=== PATIENT | female | born 1955 | race Caucasian/White ===

== ENCOUNTER → 2018-12-12 12:31 | Outpatient (CLI) | payer OTHER, SELFPAY ==
--- NOTE | 2018-12-12 | DI.MG.S_ITS ---
BILATERAL DIGITAL SCREENING MAMMOGRAM 3D/2D WITH CAD: 12/12/2018 CLINICAL: Routine screening. Family history of breast cancer. Comparison is made to exams dated: 09/20/2017 mammogram, 09/13/2016 mammogram, and 07/08/2015 mammogram - [facility]. The tissue of both breasts is heterogeneously dense. This may lower the sensitivity of mammography. Current study was also evaluated with a Computer Aided Detection (CAD) system. No significant masses, calcifications, or other findings are seen in either breast. There has been no significant interval change. IMPRESSION: NEGATIVE There is no mammographic evidence of malignancy. A 1 year screening mammogram is recommended. This exam was interpreted at Station ID: [id number]. NOTE: For mammograms, a report in lay terms will be sent to the patient. Approximately 15% of breast malignancies will not be visualized mammographically. In the management of a palpable breast mass, a negative mammogram must not discourage biopsy of a clinically suspicious lesion. Electronically Signed By: Akshat mena/ro:12/12/2018 18:15:39 copy to: Mera Corona letter sent: Normal Exam ACR BI-RADS Category 1: Negative 3341F
== END ==
PROVIDERS: PCP Family Medicine; Referring Provider Specialist; Visit Provider Family Medicine
DX: Z12.31 Encounter for screening mammogram for malignant neoplasm of breast (principal); Z80.3 Family history of malignant neoplasm of breast
CPT/HCPCS: 77063; 77067

== ENCOUNTER 2019-01-14 09:27 | Day surgery (SDC) | payer OTHER, SELFPAY ==
[2019-01-14 10:03] VITALS: BP 113/69; PULSE 75; RESP 16; TEMP 36.6; O2SAT 100
[2019-01-14] MEDS: ONDANSETRON 4 MG/2 ML INJ IV (11:01)
--- NOTE | 2019-01-14 11:31 | PM.HP.1 ---
History of Present Illness Chief complaint: [id number] COLONOSCOPY Patient History Medical History Arthritis (Chronic ~2001) Coronary artery disease (Chronic ~2012) Hepatitis B carrier (Chronic ~1987) Hyperlipidemia (Chronic ~2005) Osteoporosis (Chronic ~2012) Rosacea (Chronic ~1999) Scoliosis (Chronic ~1979) Sleep apnea (Chronic ~2010) Vision disorder (Chronic) Chicken pox (Resolved) Mumps (Resolved) Wrist fracture (Resolved) Surgical History Anesthesia (Resolved) Status post delivery (~1985) Family History (Updated 06/22/15 @ 00:00 by Conversion Provider) Brother Age: 60 High cholesterol Brother Age: 59 Hypertension High cholesterol Father Heart disease High cholesterol Grandmother Cancer Mother Age: 87 Hypertension High cholesterol Stroke Grandfather Heart disease Grandmother Heart disease Sister Age: 57 High cholesterol Grandfather No problems noted. Social History household members: spouse Smoking Status: Never smoker Family & Social History Family History Brother Age: 60 High cholesterol Brother Age: 59 Hypertension High cholesterol Father Heart disease High cholesterol Grandmother Cancer Mother Age: 87 Hypertension High cholesterol Stroke Grandfather Heart disease Grandmother Heart disease Sister Age: 57 High cholesterol Grandfather No problems noted. Social History: household members spouse Tobacco & Substance use: Smoking Status Never smoker Meds Home Medications Medication Instructions Recorded Confirmed Type calcium carbonate [Calci-Chew] 1 tab PO BID #0 11/08/16 History ESTRADIOL PEARLS 25 mcg VAGINAL 2 TIMES WEEK #24 tab 07/31/18 Rx aspirin 81 mg tablet,delayed 81 mg PO DAILY 07/31/18 07/31/18 History release atorvastatin 10 mg tablet 10 mg PO DAILY 07/31/18 07/31/18 History Allergies Allergy/AdvReac Type Severity Reaction Status Date / Time No Known Drug Allergies Allergy Unverified 07/31/18 13:46 Review of Systems Review of Systems All systems reviewed & are unremarkable except as noted in HPI and below Exam Vital Signs (past 8 hours): - 01/14/19 10:03 Temperature 97.8 F Pulse Rate 75 Respiratory Rate 16 Blood Pressure 113/69 Pulse Oximetry 100 Oxygen Delivery Method Room Air Narrative Exam Narrative: Awake alert oriented x3, pupils equal round reactive to light, lungs clear to auscultation bilaterally, heart regular rate and rhythm, abdomen nondistended nontender, extremities without edema Assessment & Plan Assessment & Plan narrative: Screening colonoscopy
[2019-01-14] MEDS: fentaNYL 250 MCG/5 ML INJ IV (11:46)
[2019-01-14] MEDS: MIDAZOLAM 5 MG/5 ML VIAL IV (11:47)
[2019-01-14 12:10] VITALS: BP 115/70; PULSE 77; RESP 12; TEMP 36.4; O2SAT 100
[2019-01-14 12:13] VITALS: BP 115/72; PULSE 78; RESP 13; O2SAT 100
--- NOTE | 2019-01-14 12:15 | PM.OP.ENDO ---
Operative Date/Time/Diagnoses Date of procedure: 01/14/19 Procedure & Clinicians Study performed: Colonoscopy Moderate conscious sedation was administered by the endoscopy nurse and supervised by the endoscopist. The following parameters were monitored: Oxygen saturation, heart rate, blood pressure, and response to care. Sedation: 3 mg midazolam, 100 mcg fentanyl, 4 mg Zofran Indications: Colon cancer screening. Personal history of colon polyps. Last colonoscopy 2016 (poor prep) Procedure Notes Procedure in detail: Prior to the procedure, history and physical was performed, and patient medications and allergies were reviewed. Preprocedure nursing history and assessment was reviewed. Patient identification and proposed procedure were verified by the physician and nurse in the procedure room. The physical status of the patient was reassessed after the procedure. After informed consent was obtained including risks, benefits, and alternatives, the scope was passed under direct vision. Throughout the procedure, the patient's blood pressure, pulse, and oxygen saturations were monitored continuously. The colonoscope was introduced through the anus and advanced to the cecum as identified by the appendiceal orifice and ileocecal valve. The patient tolerated the procedure well. Bowel prep was deemed adequate to detect polyps greater than 5 mm. Digital rectal exam and perianal examinations were unremarkable. Retroflexion in the rectum revealed grade 1 internal hemorrhoids. The entire examined colon was markedly tortuous. There was looping in the sigmoid colon. The colon was otherwise unremarkable Impression: Internal hemorrhoids Tortuous colon No specimens collected Sedation minutes: 28 Complications: other (No complications. No EBL) Plan for aftercare: Repeat colonoscopy in 5 years for screening purposes Resume home medications Resume previous diet Patient has a contact number available for emergencies. The signs and symptoms of potential delayed complications were discussed with the patient. Return to normal activities tomorrow. Written discharge instructions were provided to the patient. Discharge home with escort
[2019-01-14 12:19] VITALS: BP 117/62; PULSE 81; RESP 13; O2SAT 100
[2019-01-14 12:25] VITALS: BP 104/60; PULSE 100; RESP 18; TEMP 36.6; O2SAT 100
== END 2019-01-14 12:37 | disposition home or self-care (01) ==
PROVIDERS: PCP Family Medicine; Visit Provider Internal Medicine
PROC: 0DJD8ZZ Inspection of Lower Intestinal Tract, Via Natural or Artificial Opening Endoscopic (ICD-10-PCS; CPT 45378; principal; 2019-01-14 11:00)
DX: Z86.010 Personal history of colon polyps (principal); K64.0 First degree hemorrhoids
CPT/HCPCS: 45378; J2250; J2405; J3010

== ENCOUNTER → 2020-05-19 16:19 | Outpatient (CLI) | payer MEDICARE, SELFPAY ==
--- NOTE | 2020-05-19 | DI.MG.S_ITS ---
BILATERAL DIGITAL SCREENING MAMMOGRAM 3D/2D WITH CAD: 05/19/2020 CLINICAL: Routine screening. Family history of breast cancer. Comparison is made to exams dated: 12/12/2018 mammogram, 09/20/2017 mammogram, and 09/13/2016 mammogram - [facility]. The tissue of both breasts is heterogeneously dense. This may lower the sensitivity of mammography. Current study was also evaluated with a Computer Aided Detection (CAD) system. No significant masses, calcifications, or other findings are seen in either breast. There has been no significant interval change. IMPRESSION: NEGATIVE There is no mammographic evidence of malignancy. A 1 year screening mammogram is recommended. This exam was interpreted at Station ID: [id number]. NOTE: For mammograms, a report in lay terms will be sent to the patient. Approximately 15% of breast malignancies will not be visualized mammographically. In the management of a palpable breast mass, a negative mammogram must not discourage biopsy of a clinically suspicious lesion. Electronically Signed By: Shade schaefer/ro:05/19/2020 16:59:24 letter sent: Normal Exam ACR BI-RADS Category 1: Negative 3341F
== END ==
PROVIDERS: PCP Nurse Practitioner; Referring Provider Nurse Practitioner; Visit Provider Nurse Practitioner
DX: Z12.31 Encounter for screening mammogram for malignant neoplasm of breast (principal); Z80.3 Family history of malignant neoplasm of breast
CPT/HCPCS: 77063; 77067

== ENCOUNTER → 2021-10-03 14:10 | Outpatient (CLI) | payer MEDICARE, OTHER, SELFPAY ==
--- NOTE | 2021-10-03 | DI.MG.S_ITS ---
BILATERAL DIGITAL SCREENING MAMMOGRAM 3D/2D WITH CAD: 10/03/2021 CLINICAL: Routine screening. Family history of breast cancer. Comparison is made to exams dated: 05/19/2020 mammogram, 12/12/2018 mammogram, 09/20/2017 mammogram, and 09/13/2016 mammogram - [facility]. The tissue of both breasts is heterogeneously dense. This may lower the sensitivity of mammography. Current study was also evaluated with a Computer Aided Detection (CAD) system. There is a benign cyst in the left breast. No significant masses, calcifications, or other findings are seen in either breast. There has been no significant interval change. IMPRESSION: BENIGN There is no mammographic evidence of malignancy. A 1 year screening mammogram is recommended. This exam was interpreted at Station ID: [id number]. NOTE: For mammograms, a report in lay terms will be sent to the patient. Approximately 15% of breast malignancies will not be visualized mammographically. In the management of a palpable breast mass, a negative mammogram must not discourage biopsy of a clinically suspicious lesion. Electronically Signed By: Sarath lew/ro:10/04/2021 07:02:23 letter sent: Normal Exam ACR BI-RADS Category 2: Benign Finding(s) 3342F
== END ==
PROVIDERS: PCP Physician Assistant Medical; Referring Provider Physician Assistant Medical; Visit Provider Physician Assistant Medical
DX: Z12.31 Encounter for screening mammogram for malignant neoplasm of breast (principal); Z80.3 Family history of malignant neoplasm of breast
CPT/HCPCS: 77063; 77067

== ENCOUNTER → 2022-12-04 12:10 | Outpatient (CLI) | payer MEDICARE, OTHER, SELFPAY ==
--- NOTE | 2022-12-04 | DI.MG.S_ITS ---
BILATERAL DIGITAL SCREENING MAMMOGRAM 3D/2D WITH CAD: 12/04/2022 CLINICAL: Routine screening. Family history of breast cancer. Comparison is made to exams dated: 10/03/2021 mammogram, 05/19/2020 mammogram, and 12/12/2018 mammogram - [facility]. Both breasts are heterogeneously dense, which may obscure small masses (category c / 51-75% glandular tissue). Current study was also evaluated with a Computer Aided Detection (CAD) system. There is a benign cyst in the left breast. No significant masses, calcifications, or other findings are seen in either breast. There has been no significant interval change. IMPRESSION: BENIGN There is no mammographic evidence of malignancy. A 1 year screening mammogram is recommended. Based on the Tyrer Cuzick model (a risk assessment model) the patient's lifetime risk is 11.1% and her 10 year risk is 5.9%. According to the ACR, ACS, and NCCN guidelines, an annual breast MRI exam along with mammogram is recommended if the patient's lifetime risk is 20% or greater. This exam was interpreted at Station ID: [id number]. NOTE: For mammograms, a report in lay terms will be sent to the patient. Approximately 15% of breast malignancies will not be visualized mammographically. In the management of a palpable breast mass, a negative mammogram must not discourage biopsy of a clinically suspicious lesion. Electronically Signed By: Leta hargrove/ro:12/04/2022 16:40:27 letter sent: Normal Exam ACR BI-RADS Category 2: Benign Finding(s) 3342F
== END ==
PROVIDERS: PCP Physician Assistant Medical; Referring Provider Physician Assistant Medical; Visit Provider Physician Assistant Medical
DX: Z12.31 Encounter for screening mammogram for malignant neoplasm of breast (principal); Z80.3 Family history of malignant neoplasm of breast
CPT/HCPCS: 77063; 77067

== ENCOUNTER → 2022-12-14 10:36 | Outpatient (CLI) | payer MEDICARE, OTHER, SELFPAY ==
--- NOTE | 2022-12-14 | DI.US.S_ITS ---
PROCEDURE: US ABDOMEN COMPLETE INDICATIONS: HEP B TECHNIQUE: Real-time scanning was performed of the abdominal and retroperitoneal organs, with image documentation. COMPARISON: None. FINDINGS: Liver: Liver is normal in size and demonstrates no suspicious lesions. There is a 4.3 cm simple cyst seen on the left. Gallbladder: No findings of gallstones or sludge are seen. The gallbladder wall is not thickened, measuring 3 mm or less. No specific pericholecystic fluid is seen. The sonographic Wills sign is negative. Biliary ducts: Intrahepatic bile ducts are non-dilated. Extrahepatic bile duct caliber measures 4-5 mm. Normal is 6-7 mm or less in diameter, or 10 mm or less post-cholecystectomy. Pancreas: Visualized portions of the pancreas are sonographically normal. Spleen: Spleen is normal in size and homogeneous in echotexture. Kidneys: Kidneys are normal in size and echotexture. Right kidney measures 9.6 cm long; left kidney measures 11.4 cm long. No hydronephrosis or nephrolithiasis. No solid masses. Aorta: Visualized aorta is normal in caliber at less than 3 cm. Iliacs: Proximal common iliac arteries are normal in caliber at less than 2.5 cm. IVC: Intrahepatic inferior vena cava is patent. Miscellaneous: No free abdominal fluid. IMPRESSION: No suspicious liver abnormality is seen. 4.3 cm left liver cyst incidentally noted. Dictated by: Colt Davenport M.D. on 12/14/2022 at 11:54 Approved by: Colt Davenport M.D. on 12/14/2022 at 11:55
== END ==
PROVIDERS: PCP Physician Assistant Medical; Referring Provider Internal Medicine Gastroenterology; Visit Provider Internal Medicine Gastroenterology
DX: K76.89 Other specified diseases of liver (principal); B19.10 Unspecified viral hepatitis B without hepatic coma
CPT/HCPCS: 76700

== ENCOUNTER → 2023-06-12 10:23 | Outpatient (CLI) | payer MEDICARE, OTHER, SELFPAY ==
--- NOTE | 2023-06-12 | DI.US.S_ITS ---
PROCEDURE: US ABDOMEN LIMITED INDICATIONS: HEP B AND HCC SURVEILLANCE TECHNIQUE: Real-time focused scanning was performed of the abdomen, with image documentation. COMPARISON: [facility], US, US ABDOMEN COMPLETE, 12/14/2022, 11:08. FINDINGS: Liver measures 12 cm. Overall echogenicity is heterogeneous and increased. Gallbladder unremarkable. CBD is 3 mm, within normal limits. Visualized pancreas unremarkable. The left lobe hepatic cyst measures up to 4 cm. IMPRESSION: No suspicious focal liver lesion. Heterogeneous increased hepatic echotexture, likely fibrofatty infiltration. Consider continued HCC surveillance. Dictated by: Po Larkin M.D. on 06/12/2023 at 14:15 Approved by: Po Larkin M.D. on 06/12/2023 at 14:18
== END ==
PROVIDERS: PCP Physician Assistant Medical; Referring Provider Internal Medicine Gastroenterology; Visit Provider Internal Medicine Gastroenterology
DX: Z12.9 Encounter for screening for malignant neoplasm, site unspecified (principal); B19.10 Unspecified viral hepatitis B without hepatic coma
CPT/HCPCS: 76705

== ENCOUNTER → 2023-12-04 09:49 | Outpatient (CLI) | payer MEDICARE, OTHER, SELFPAY ==
--- NOTE | 2023-12-04 | DI.US.S_ITS ---
PROCEDURE: US ABDOMEN COMPLETE INDICATIONS: HEB B HCC SURVEILLANCE TECHNIQUE: Real-time scanning was performed of the abdominal and retroperitoneal organs, with image documentation. COMPARISON: [facility], US, US ABDOMEN COMPLETE, 12/14/2022, 11:08. [facility], US, US ABDOMEN LIMITED, 06/12/2023, 10:39. FINDINGS: Liver: Liver is normal in size and demonstrates no suspicious lesions. There is a simple cyst seen involving the medial left lobe that measures up to 4.3 cm. This is similar to prior. Gallbladder: No findings of gallstones or sludge are seen. The gallbladder wall is not thickened, measuring 3 mm or less. No specific pericholecystic fluid is seen. The sonographic Wills sign is negative. Biliary ducts: Intrahepatic bile ducts are non-dilated. Extrahepatic bile duct caliber measures 3 mm. Normal is 6-7 mm or less in diameter, or 10 mm or less post-cholecystectomy. Pancreas: Visualized portions of the pancreas are sonographically normal. Spleen: Spleen is normal in size and homogeneous in echotexture. Kidneys: Kidneys are normal in size and echotexture. Right kidney measures 10 cm long; left kidney measures 10.9 cm long. No hydronephrosis or nephrolithiasis. No solid masses. Aorta: Visualized aorta is normal in caliber at less than 3 cm. Iliacs: Proximal common iliac arteries are normal in caliber at less than 2.5 cm. IVC: Intrahepatic inferior vena cava is patent. Miscellaneous: No free abdominal fluid. IMPRESSION: No suspicious liver lesions are seen. Stable simple left liver cyst. Dictated by: Colt Davenport M.D. on 12/04/2023 at 18:17 Approved by: Colt Davenport M.D. on 12/04/2023 at 18:18
== END ==
PROVIDERS: PCP Physician Assistant Medical; Referring Provider Internal Medicine Gastroenterology; Visit Provider Internal Medicine Gastroenterology
DX: B19.10 Unspecified viral hepatitis B without hepatic coma (principal); Z08 Encounter for follow-up examination after completed treatment for malignant neoplasm; Z85.05 Personal history of malignant neoplasm of liver; K76.89 Other specified diseases of liver
CPT/HCPCS: 76700

== ENCOUNTER → 2023-12-09 11:35 | Outpatient (CLI) | payer MEDICARE, OTHER, SELFPAY ==
--- NOTE | 2023-12-09 11:36 | DI.MG.S_ITS ---
BILATERAL DIGITAL SCREENING MAMMOGRAM 3D/2D WITH CAD: 12/09/2023 CLINICAL: Routine screening. Family history of breast cancer. Comparison is made to exams dated: 12/04/2022 mammogram, 10/03/2021 mammogram, 05/19/2020 mammogram, 12/12/2018 mammogram, and 09/20/2017 mammogram - [facility]. Both breasts are heterogeneously dense, which may obscure small masses (category c / 51-75% glandular tissue). Current study was also evaluated with a Computer Aided Detection (CAD) system. No significant masses, calcifications, or other findings are seen in either breast. There has been no significant interval change. IMPRESSION: NEGATIVE There is no mammographic evidence of malignancy. A 1 year screening mammogram is recommended. Based on the Tyrer Cuzick model (a risk assessment model) the patient's lifetime risk is 10.5% and her 10 year risk is 5.9%. According to the ACR, ACS, and NCCN guidelines, an annual breast MRI exam along with mammogram is recommended if the patient's lifetime risk is 20% or greater. This exam was interpreted at Station ID: [id number]. NOTE: For mammograms, a report in lay terms will be sent to the patient. Approximately 15% of breast malignancies will not be visualized mammographically. In the management of a palpable breast mass, a negative mammogram must not discourage biopsy of a clinically suspicious lesion. Electronically Signed By: Rio lim/ro:12/09/2023 14:21:36 letter sent: Normal Exam ACR BI-RADS Category 1: Negative 3341F
== END ==
PROVIDERS: PCP Physician Assistant Medical; Referring Provider Physician Assistant Medical; Visit Provider Physician Assistant Medical
DX: Z12.31 Encounter for screening mammogram for malignant neoplasm of breast (principal); Z80.3 Family history of malignant neoplasm of breast; R92.333 Mammographic heterogeneous density, bilateral breasts
CPT/HCPCS: 77063; 77067

== ENCOUNTER 2024-03-19 10:23 | Day surgery (SDC) | payer MEDICARE, OTHER, SELFPAY ==
[2024-03-19 10:52] VITALS: BP 129/77; PULSE 90; RESP 16; TEMP 36.3; O2SAT 100
[2024-03-19] MEDS: LACTATED RINGERS 1,000 ML 42 ML IV (11:00)
--- NOTE | 2024-03-19 11:50 | PM.HP.1 ---
History of Present Illness History of Present Illness Date Patient Seen: 03/19/24 Time Patient Seen: 11:50 Chief complaint: Screening Colonoscopy Narrative: Alicia is a 68-year-old woman with a history of colon polyps. Her last colonoscopy was in [address] Puga and no polyps were found. She believes her colonoscopy prior to that had polyps. [facility] Medical History (Updated 03/19/24 @ 11:51 by Davon Manzano MD) Vision disorder Sleep apnea (~2010) Arthritis (~2001) Scoliosis (~1979) Osteoporosis (~2012) Wrist fracture Rosacea (~1999) Mumps Hepatitis B carrier (~1987) Chicken pox Hyperlipidemia (~2005) Coronary artery disease (~2012) Surgical History Anesthesia Status post delivery (~1985) Family History Brother Age: 65 High cholesterol Brother Age: 64 Hypertension High cholesterol Father Heart disease High cholesterol Grandmother Cancer Mother Age: 92 Hypertension High cholesterol Stroke Grandfather Heart disease Grandmother Heart disease Sister Age: 62 High cholesterol Grandfather No problems noted. Social History household members: spouse Smoking Status: Never smoker Meds Home Medications and Allergies Home Medications Medication Instructions Recorded Confirmed Type calcium carbonate (Calci-Chew) 1 tab PO BID ##0 11/08/16 03/19/24 History ESTRADIOL PEARLS 25 mcg vaginal 2 TIMES WEEK HRT 07/31/18 03/19/24 Rx #24 tabs rosuvastatin 5 mg tablet 2.5 mg PO QPM cholesterol 03/19/24 03/19/24 History Allergies Allergy/AdvReac Type Severity Reaction Status Date / Time No Known Drug Allergies Allergy Verified 03/19/24 10:49 Exam Vital Signs (past 8 hours): - 03/19/24 10:52 Temperature 97.3 F L Pulse Rate 90 Respiratory Rate 16 Blood Pressure 129/77 Pulse Oximetry 100 Oxygen Delivery Method Room Air Oxygen Delivery Method Room Air Const General: healthy appearing Resp Effort & Inspection: normal respiratory effort Assessment & Plan Assessment and plan (1) History of colon polyps: Status: Acute Plan We reviewed the risks and benefits of colonoscopy and she would like to proceed. Time-Based Coding :: [TOTAL MINUTES] spent with patient and on the chart (including review of chart, obtaining history, exam, reviewing outside data, placing orders, documenting exam and treatment plan, and counseling patient) on [DATE].
--- NOTE | 2024-03-19 12:20 | PM.OP.COLON ---
Operative Date/Time/Diagnoses Date of procedure: 03/19/24 Time of procedure: 12:20 Pre-op diagnosis: History of colon polyps Post-op diagnosis: same Procedure & Clinicians Study performed: Colonoscopy Same procedure as scheduled: Yes Surgeon: Davon Manzano Procedure Notes Procedure in detail: Surgeon: Davon Manzano MD Anesthesia: Iman Scruggs CRNA Procedure: The patient was brought to the endoscopy suite, placed in left lateral decubitus position. The patient was connected to monitoring devices. A time-out was performed. Sedation was administered. Once the patient was adequately sedated, a digital rectal exam was performed and was normal. The scope was then inserted and advanced to the cecum where the appendiceal orifice was identified and photographed. The scope was then slowly withdrawn over greater than 6 minutes. The mucosa was thoroughly inspected. Few scattered diverticula were seen. No polyps were found. The scope was retroflexed in the rectum. No abnormalities were seen. The scope was straightened and removed. The patient was awakened and brought to recovery. Scope withdrawal time: 7 minutes Sedation time: 16 minutes EBL: 0 Findings: Normal colon Post-procedure Recommendations: Colonoscopy in 10 years Disposition: PACU
[2024-03-19 12:22] VITALS: BP 84/50; PULSE 71; RESP 19; TEMP 36.3; O2SAT 100
[2024-03-19 12:27] VITALS: BP 99/57; PULSE 91; RESP 16; O2SAT 100
[2024-03-19 12:32] VITALS: BP 98/58; PULSE 78; RESP 17; TEMP 36.3; O2SAT 100
[2024-03-19 12:37] VITALS: BP 99/56; PULSE 74; RESP 15; TEMP 36.2; O2SAT 100
== END 2024-03-19 12:55 | disposition home or self-care (01) ==
PROVIDERS: PCP Physician Assistant Medical; Referring Provider Surgery; Visit Provider Surgery
PROC: 0DJD8ZZ Inspection of Lower Intestinal Tract, Via Natural or Artificial Opening Endoscopic (ICD-10-PCS; CPT 45378; principal; 2024-03-19 11:30)
DX: Z12.11 Encounter for screening for malignant neoplasm of colon (principal); K57.90 Diverticulosis of intestine, part unspecified, without perforation or abscess without bleeding; Z86.010 Personal history of colon polyps
CPT/HCPCS: G0121; J2405; J2704

== ENCOUNTER → 2024-03-31 16:29 | Outpatient (CLI) | payer MEDICARE, OTHER, SELFPAY | PROVIDERS: PCP Physician Assistant Medical; Referring Provider Internal Medicine Gastroenterology; Visit Provider Internal Medicine Gastroenterology | DX: Z12.9 Encounter for screening for malignant neoplasm, site unspecified (principal) | CPT/HCPCS: 36415; 82105 ==

== ENCOUNTER → 2024-06-10 10:53 | Outpatient (CLI) | payer MEDICARE, OTHER, SELFPAY ==
--- NOTE | 2024-06-10 10:54 | DI.US.S_ITS ---
PROCEDURE: US ABDOMEN COMPLETE INDICATIONS: HEB B TECHNIQUE: Real-time scanning was performed of the abdominal and retroperitoneal organs, with image documentation. COMPARISON: [facility], US, US ABDOMEN COMPLETE, 12/04/2023, 10:26. [facility], US, US ABDOMEN LIMITED, 06/12/2023, 10:39. FINDINGS: Liver: The liver demonstrates normal size. The liver demonstrates generalized mildly increased echogenicity. This decreases ultrasound sensitivity for detection of hepatic masses. There is a simple cyst seen involving the left liver measuring up to 4.3 cm. Gallbladder: No findings of gallstones or sludge are seen. The gallbladder wall is not thickened, measuring 3 mm or less. No specific pericholecystic fluid is seen. The sonographic Wills sign is negative. Biliary ducts: Intrahepatic bile ducts are non-dilated. Extrahepatic bile duct caliber measures 4 mm. Normal is 6-7 mm or less in diameter, or 10 mm or less post-cholecystectomy. Pancreas: Visualized portions of the pancreas are sonographically normal. Spleen: Spleen is normal in size and homogeneous in echotexture. Kidneys: Kidneys are normal in size and echotexture. Right kidney measures 9.3 cm long; left kidney measures 11.1 cm long. No hydronephrosis or nephrolithiasis. No solid masses. Aorta: Visualized aorta is normal in caliber at less than 3 cm. Iliacs: Proximal common iliac arteries are normal in caliber at less than 2.5 cm. IVC: Intrahepatic inferior vena cava is patent. Miscellaneous: No free abdominal fluid. IMPRESSION: No significant liver abnormality is seen. Mild fatty liver infiltration can be seen. A simple left liver cyst can be seen. Dictated by: Colt Davenport M.D. on 06/10/2024 at 15:17 Approved by: Colt Davenport M.D. on 06/10/2024 at 15:19
== END ==
PROVIDERS: PCP Physician Assistant Medical; Referring Provider Internal Medicine Gastroenterology; Visit Provider Internal Medicine Gastroenterology
DX: B19.10 Unspecified viral hepatitis B without hepatic coma (principal); K76.89 Other specified diseases of liver; K76.0 Fatty (change of) liver, not elsewhere classified
CPT/HCPCS: 76700

== ENCOUNTER → 2024-10-13 10:16 | Outpatient (CLI) | payer MEDICARE, OTHER, SELFPAY ==
[2024-10-13 11:08] LABS: Add Manual Diff / Slide Review NO; Basophils Absolute Auto 0 /uL (0-100); Basophils Percent Auto 0.9 % (0-2); Eosinophils Absolute Auto 100 /uL (0-450); Eosinophils Percent Auto 2.4 % (2-4); Hematocrit 40.8 % (36-46); Hemoglobin 13.8 g/dL (12.0-16.0); Lymphocytes Absolute Auto 1500 /uL (1100-4500); Mean Corpuscular HGB Conc 33.8 % (30-36); Mean Corpuscular Hemoglobin 31.6 PG (26-34); Mean Corpuscular Volume 93.6 fL (80-100); Monocytes Absolute Auto 400 /uL (0-900); Monocytes Percent Auto 10.6 % (3-14); Neutrophils Absolute Auto 2000 /uL (1500-7000); Neutrophils Percent Auto 49.1 % (50-75); Platelet Count 246 X10^3/uL (150-400); Red Blood Cell Count 4.36 X10^6/uL (4.0-5.2); Red Cell Distribution Width 13.6 % (11.6-14.8); White Blood Cell Count 4.1 X10^3/uL (4.5-11.0)
[2024-10-13 11:31] LABS: Alanine Aminotransferase 21 IU/L (<35); Albumin 4.8 g/dL (3.5-5.0); Albumin Globulin Ratio 2.1 (1.0-2.8); Alkaline Phosphatase 58 U/L (38-126); Aspartate Aminotransferase 38 IU/L (14-36); BUN Creatinine Ratio 23.9 (6-22); Bilirubin Total 0.8 mg/dL (0.2-1.3); Blood Urea Nitrogen 16 mg/dL (7-17); Calcium 9.6 mg/dL (8.4-10.2); Carbon Dioxide 28 mmol/L (22-32); Chloride 101 mmol/L (98-107); Estimated Glomerular Filt Rate > 60 mL/min (>60); Globulin 2.3 g/dL (1.7-4.1); Glucose 92 mg/dL (80-110); HEMOLYSIS < 15 (0-50); Potassium 4.1 mmol/L (3.4-5.1); Sodium 137 mmol/L (137-145); Total Protein 7.1 g/dL (6.3-8.2)
[2024-10-14 07:09] LABS: Alpha Fetoprotein 3.3 ng/mL (0.0-9.2)
[2024-10-15 07:09] LABS: Hepatitis B Virus 70 IU/mL (.); Hepatitis B virus log 10 1.845 (.)
== END ==
PROVIDERS: PCP Physician Assistant Medical; Referring Provider Internal Medicine Gastroenterology; Visit Provider Internal Medicine Gastroenterology
DX: Z22.350 Carrier of carbapenem-resistant Enterobacterales (principal)
CPT/HCPCS: 36415; 80053; 82105; 85025

== ENCOUNTER → 2024-12-09 10:24 | Outpatient (CLI) | payer MEDICARE, OTHER, SELFPAY ==
--- NOTE | 2024-12-09 10:26 | DI.MG.S_ITS ---
MM screening mammo BI: 12/09/2024. BI-RADS: 1 CLINICAL: 69-year old female for bilateral screening mammogram. Tyrer-Cuzick lifetime risk of 7.2%. No personal or first-degree family history of breast cancer. Current reported family history of breast cancer: maternal grandmother. PRIOR EXAMS 12/09/2023, 12/04/2022, 10/03/2021, 05/19/2020, 12/12/2018, 09/20/2017, 09/13/2016, 07/08/2015. MAMMOGRAPHY TECHNIQUE: 2D and 3D (tomosynthesis) digital mammographic views obtained, with additional images as needed for full coverage. Current study was also evaluated with a Computer Aided Detection (CAD) system. DENSITY C. The breasts are heterogeneously dense, which may obscure small masses. MAMMOGRAPHY FINDINGS Bilateral: No suspicious mass, asymmetry, microcalcification, or other abnormality seen. IMPRESSION: * No evidence of malignancy. RECOMMENDATIONS Bilateral * Annual screening mammography. OVERALL ASSESSMENT CATEGORY BI-RADS-1: Negative. The [employer] recommends annual screening mammography beginning at age 40 for women with average risk of breast cancer. ELECTRONICALLY SIGNED: Callie Law M.D. on 12/09/2024 at 01:59:28 PM PT Interpreting Station ID: [id number]
== END ==
PROVIDERS: PCP Physician Assistant Medical; Referring Provider Physician Assistant Medical; Visit Provider Physician Assistant Medical
DX: Z12.31 Encounter for screening mammogram for malignant neoplasm of breast (principal); Z80.3 Family history of malignant neoplasm of breast
CPT/HCPCS: 77063; 77067

== ENCOUNTER → 2024-12-18 10:32 | Outpatient (CLI) | payer MEDICARE, OTHER, SELFPAY ==
--- NOTE | 2024-12-18 10:35 | DI.US.S_ITS ---
PROCEDURE: US ABDOMEN LIMITED INDICATIONS: HCC SURVEILLANCE TECHNIQUE: Real-time scanning was performed of the abdominal and retroperitoneal organs, with image documentation. COMPARISON: [facility], , US ABDOMEN COMPLETE, 06/10/2024, 11:06. FINDINGS: Liver: Liver is normal in size and mildly increased in echogenicity. Simple left hepatic lobe cyst measuring 4.8 x 4.5 x 4.1 cm, previously 4.0 x 3.7 x 4.3 cm. Gallbladder: No gallstones. No wall thickening. No pericholecystic edema. Negative sonographic Wills's sign. Biliary ducts: Intrahepatic bile ducts are non-dilated. Extrahepatic bile duct caliber measures 4.6 mm. Normal is 6-7 mm or less in diameter, or 10 mm or less post-cholecystectomy. Pancreas: Visualized portions of the pancreas are sonographically normal. Miscellaneous: No free abdominal fluid. IMPRESSION: Liver is mildly increased in echogenicity, most consistent with mild hepatic steatosis. No hepatic masses. Simple left hepatic lobe cyst is redemonstrated. Dictated by: Robby Arvizu M.D. on 12/19/2024 at 13:17 Approved by: Robby Arvizu M.D. on 12/19/2024 at 13:19
== END ==
PROVIDERS: PCP Physician Assistant Medical; Referring Provider Physician Assistant Medical; Visit Provider Internal Medicine Gastroenterology
DX: Z12.9 Encounter for screening for malignant neoplasm, site unspecified (principal); K76.89 Other specified diseases of liver
CPT/HCPCS: 76705

== ENCOUNTER → 2025-05-25 14:44 | Outpatient (CLI) | payer MEDICARE, OTHER, SELFPAY ==
[2025-05-25 15:59] LABS: Alanine Aminotransferase 15 IU/L (<35); Albumin 4.7 g/dL (3.5-5.0); Albumin Globulin Ratio 1.7 (1.0-2.8); Alkaline Phosphatase 63 U/L (38-126); Blood Urea Nitrogen 15 mg/dL (7-17); Calcium 9.7 mg/dL (8.4-10.2); Carbon Dioxide 28 mmol/L (22-32); Chloride 100 mmol/L (98-107); Estimated Glomerular Filt Rate > 60 mL/min (>60); Globulin 2.7 g/dL (1.7-4.1); Glucose 86 mg/dL (70-99); HEMOLYSIS < 15 (0-50); Potassium 3.8 mmol/L (3.4-5.1); Sodium 138 mmol/L (137-145); Total Protein 7.4 g/dL (6.3-8.2)
== END ==
PROVIDERS: PCP Physician Assistant Medical; Referring Provider Internal Medicine Gastroenterology; Visit Provider Internal Medicine Gastroenterology
DX: Z12.9 Encounter for screening for malignant neoplasm, site unspecified (principal)
CPT/HCPCS: 36415; 80053; 82105

== ENCOUNTER → 2025-06-08 13:43 | Outpatient (CLI) | payer MEDICARE, OTHER, SELFPAY ==
--- NOTE | 2025-06-08 13:44 | DI.RAD.S_ITS ---
PROCEDURE: XR DEXA AXIAL SKELETON INDICATIONS: Osteorporosis Screening COMPARISON: None. FINDINGS: Lumbar Spine: Bone mineral density 0.71 g/cm2, T score -3.2,. Left Femoral Neck: Bone mineral density 0.60 g/cm2, T score -2.3. Left Hip: Bone mineral density 0.74 g/cm2, T score -1.7,. Fracture Risk Calculation (when applicable): Osteoporosis, not applicable (T score greater or equal to -1.0 to: NORMAL) (T score from -1.1 to -2.4: OSTEOPENIA) (T score less than or equal to -2.5: OSTEOPOROSIS) IMPRESSION: Osteoporosis Follow-up guidelines as follows: Osteoporosis: Consider a repeat DEXA and Vertebral Fracture Assessment (VFA) exam in 2 years or sooner if medically necessary, to reassess this patient's status. Osteopenia: Consider a repeat DEXA in 2-3 years to reassess this patient's status, or if there is a new clinical indication. Normal: Consider a repeat DEXA in 5 years or sooner, or if there is a new clinical indication. All treatment decisions require clinical judgment and consideration of individual patient factors, including patient preferences, comorbidities, previous drug use, risk factors not captured in the FRAX model (e.g., frailty, falls, vitamin D deficiency, increased bone turnover, interval significant decline in bone density ) and possible under- or over-estimation of fracture risk by FRAX. In addition, the NOF Guide recommends that FDA-approved medical therapies be considered in postmenopausal women and men age >= 50 years with a: * Hip or vertebral (clinical or morphometric) fracture * T-score of <=-2.5 at the spine or hip * Ten-year fracture probability by FRAX of >= 3% for hip fracture or >=20% for major osteoporotic fracture. Dictated by: Po Larkin M.D. on 06/09/2025 at 15:43 Approved by: Po Larkin M.D. on 06/09/2025 at 15:44
== END ==
LOC: RAD 13:44
PROVIDERS: PCP Physician Assistant Medical; Referring Provider Physician Assistant Medical; Visit Provider Physician Assistant Medical
DX: M81.0 Age-related osteoporosis without current pathological fracture (principal); M85.88 Other specified disorders of bone density and structure, other site; Z78.0 Asymptomatic menopausal state
CPT/HCPCS: 77080

== ENCOUNTER → 2025-07-13 10:44 | Outpatient (CLI) | payer MEDICARE, OTHER, SELFPAY ==
--- NOTE | 2025-07-13 10:45 | DI.US.S_ITS ---
PROCEDURE: US ABDOMEN LIMITED INDICATIONS: HEPATITIS HCC SCREENING TECHNIQUE: Real-time scanning was performed of the abdominal and retroperitoneal organs, with image documentation. COMPARISON: [facility], US, US ABDOMEN LIMITED, 12/18/2024, 10:58. FINDINGS: Liver: Mildly coarsened hepatic echotexture. Smooth liver contour. No suspicious hepatic lesion. Left hepatic lobe 5.1 cm anechoic cyst. Gallbladder: No gallstones. No wall thickening. No pericholecystic edema. Negative sonographic Wills's sign. Biliary ducts: Intrahepatic bile ducts are non-dilated. Extrahepatic bile duct caliber measures 3 mm. Normal is 6-7 mm or less in diameter, or 10 mm or less post-cholecystectomy. Pancreas: Visualized portions of the pancreas are sonographically normal. Miscellaneous: No free abdominal fluid. IMPRESSION: Mother coarsened hepatic echotexture, which can be seen with hepatocellular dysfunction, and reported history of hepatitis. No solid hepatic mass lesion is identified sonographically. Dictated by: Gibson Mcdonald M.D. on 07/13/2025 at 15:35 Approved by: Gibson Mcdonald M.D. on 07/13/2025 at 15:36
== END ==
PROVIDERS: PCP Physician Assistant Medical; Referring Provider Internal Medicine Gastroenterology; Visit Provider Internal Medicine Gastroenterology
DX: B19.10 Unspecified viral hepatitis B without hepatic coma (principal); Z12.9 Encounter for screening for malignant neoplasm, site unspecified
CPT/HCPCS: 76705